=== PATIENT | female | born 1965 | race African-American/Black ===

== ENCOUNTER 2024-12-14 17:04 | Emergency (ER) | payer MEDICAID ==
[~2024-12-14] VITALS: Ht 165.1 cm; Wt 91.3 kg
[2024-12-14] MEDS: KETOROLAC TROMETH 60MG/2ML VIAL IM ONE (19:00)
[2024-12-14 19:11] LABS: Basophils # (auto) 0 10 ^3/uL (0-0.2); Basophils % (auto) 0.6 % (0.0-2.0); Eosinophils # (auto) 0.1 10 ^3/uL (0-0.8); Eosinophils % (auto) 2.5 % (0.0-7.0); Hematocrit 39.5 % (36.0-46.0); Hemoglobin 13.2 g/dL (12.2-16.2); Lymphocytes # (auto) 1.5 10 ^3/uL (0.4-5.4); Lymphocytes % (auto) 28.3 % (10.0-50.0); Mean Corpuscular Hemoglobin 29.7 pg (28.0-32.0); Mean Corpuscular Hgb Conc. 33.4 g/dL (32.0-36.0); Mean Corpuscular Volume 88.9 fL (80.0-100.0); Monocytes # (auto) 0.5 10 ^3/uL (0-1.3); Monocytes % (auto) 8.8 % (0.0-12.0); Neutrophils # (auto) 3.1 10 ^3/uL (1.6-8.6); Neutrophils % (auto) 59.8 % (37.0-80.0); Nucleated Red Blood Cells % 0.2 %; Platelet Count (auto) 172 10^3/uL (140-450); Red Blood Cells 4.44 10^6/uL (4.0-5.20); Red Cell Distribution Width 15.2 % (11.8-14.3); White Blood Cell 5.2 10^3/uL (4.4-10.8)
[2024-12-14 19:18] LABS: Sodium 140 mmol/L (136-145)
[2024-12-14 19:19] LABS: Anion Gap 5 (5-15); Calcium 9.9 mg/dL (8.7-10.4); Carbon Dioxide 26 mmol/L (20-31)
[2024-12-14 19:24] LABS: BUN/Creatinine Ratio 21.3 (10.0-20.0); Blood Urea Nitrogen 20 mg/dL (9-23)
[2024-12-14 19:26] LABS: INR 1.01 (0.9-1.15); Partial Thromboplastin Time 26.5 SEC (24.5-34.5); Prothrombin Time 10.7 sec (9.3-11.8)
[2024-12-14 19:28] LABS: Chloride 109 mmol/L (98-107); Glucose 137 mg/dL (74-106)
--- NOTE | 2024-12-14 19:28 | ED.PDOC ---
Musculoskeletal HPI Comments 59-year-old female brought in by family complaining of left calf pain for the past week. Patient states it has been difficult to ambulate due to the pain. She denies any trauma, fever, edema, skin lesions or swelling. She does know some purple bruising overlying the painful area. She states pain is localized to the upper calf region. Chief Complaint: Lower Extremity Time Seen by MD: 18:25 Reviewed Notes: Nurses Notes, Medications, Allergies Allergies: Coded Allergies: Hydromorphone (Verified Allergy, Unknown, 12/14/24) Information Source: Patient Mode of Arrival: Ambulatory Location: Left Extremity Location: Calf Timing: Days Severity: Moderate Able to Move Extremity: Yes Bear Weight: Limited Pain: Moderate Mechanism: Spontaneous Circumstances: Spontaneous Onset of Symptoms: Spontaneous Symptoms: Pain DVT Risk Factors: Cancer Last Tetanus: Unknown Associated signs and symptoms: Leg pain, Below joint pain Past Medical History PAST MEDICAL HISTORY: Arthritis (RA), Cancer (Cervical Cancer), DM Past Medical History (Other): Sarcoidosis, cervical cancer in remission, vaginal dysplasia Surgical History (Other): Partial vaginectomy COFFEE TASTER History: No Pertinent COFFEE TASTER History Family History Family History: Reviewed,noncontributory to illness, Unknown Social History Smoker: Non-Smoker Alcohol: Denies ETOH Use Drugs: Denies Drug Use Lives In: Home Hematologic/Lymphatic: denies: anemia, blood clots, easy bleeding, easy bruising, swollen glands, others All Other Systems: Reviewed and Negative (Comprehensive systems review obtained and negative except for what is stated in the HPI) Physical Exam General Appearance: No Apparent Distress HEENT: PERRL/EOMI Neck: Full Range of Motion, Normal Inspection Respiratory: Lungs Clear, No Accessory Muscle Use, No Respiratory Distress, Normal Breath Sounds Cardiovascular: No Edema, No JVD, Regular Rate/Rhythm Breast Exam: Deferred Gastrointestinal: Non Tender, Soft Genitalia: Deferred Pelvic: Deferred Rectal: Deferred Extremities: Normal range of motion, No pedal edema, Other (Localized left calf tenderness in the proximal aspect with localized bruising.) Musculoskeletal : Apperance: Normal Neurologic: Alert (Oriented x4), Normal Affect, Normal Mood Cerebellar Function: NOT DONE Reflexes: NOT DONE Skin: Dry, Warm Lymphatic: NOT DONE Was a procedure done? Was a procedure done?: No Differential Diagnosis EXT Differential Diagnosis: Cellulitis, Deep Vein Thrombosis, Strain, Arthritis, Bursitis, Other (Superficial thrombophlebitis) X-Ray, Labs, Meds, VS Vital Signs Date Time Temp Pulse Resp B/P (MAP) Pulse Ox O2 Delivery O2 Flow Rate FiO2 12/14/24 20:38 98.3 69 18 150/75 (100) 99 98.3 12/14/24 20:38 69 18 99 Room Air 12/14/24 17:10 97.8 81 18 138/63 (88) 97 Lab Test 12/14/24 18:49 Range/Units White Blood Count 5.2 4.4-10.8 10^3/uL Red Blood Count 4.44 4.0-5.20 10^6/uL Hemoglobin 13.2 12.2-16.2 g/dL Hematocrit 39.5 36.0-46.0 % Mean Corpuscular Volume 88.9 80.0-100.0 fL Mean Corpuscular Hemoglobin 29.7 28.0-32.0 pg Mean Corpuscular Hemoglobin Concent 33.4 32.0-36.0 g/dL Red Cell Distribution Width 15.2 H 11.8-14.3 % Platelet Count 172 140-450 10^3/uL Mean Platelet Volume 8.3 6.9-10.8 fL Neutrophils (%) (Auto) 59.8 37.0-80.0 % Lymphocytes (%) (Auto) 28.3 10.0-50.0 % Monocytes (%) (Auto) 8.8 0.0-12.0 % Eosinophils (%) (Auto) 2.5 0.0-7.0 % Basophils (%) (Auto) 0.6 0.0-2.0 % Neutrophils # (Auto) 3.1 1.6-8.6 10 ^3/uL Lymphocytes # (Auto) 1.5 0.4-5.4 10 ^3/uL Monocytes # (Auto) 0.5 0-1.3 10 ^3/uL Eosinophils # (Auto) 0.1 0-0.8 10 ^3/uL Basophils # (Auto) 0 0-0.2 10 ^3/uL Nucleated Red Blood Cells 0.2 % Prothrombin Time 10.7 9.3-11.8 sec Prothrombin Time INR 1.01 0.9-1.15 Activated Partial Thromboplast Time 26.5 24.5-34.5 SEC Sodium Level 140 136-145 mmol/L Potassium Level 4.0 3.5-5.1 mmol/L Chloride Level 109 H 98-107 mmol/L Carbon Dioxide Level 26 20-31 mmol/L Anion Gap 5 5-15 Blood Urea Nitrogen 20 9-23 mg/dL Creatinine 0.94 0.550-1.02 mg/dL Glomerular Filtration Rate Calc 69 >90 mL/min BUN/Creatinine Ratio 21.3 H 10.0-20.0 Serum Glucose 137 H 74-106 mg/dL Calcium Level 9.9 8.7-10.4 mg/dL Current Medications Medications (Trade) Dose Ordered Sig/Mandi Route Start Time Stop Time Status Last Admin Ketorolac Tromethamine (Toradol Injection) 60 mg ONCE ONCE IM 12/14/24 18:15 12/14/24 18:16 DC 12/14/24 19:00 PROCEDURE(s): LLDVT - LT Lower DVT REASON: L calf pain ORDER NUMBER(s): [id number], ACCESSION NUMBER(s): [id number] Left lower extremity venous duplex Clinical History: L calf pain Comparison: None Technique: Duplex Doppler evaluation of the deep venous system of the left lower extremity from the common femoral vein to the popliteal vein including color Doppler and spectral/pulsed waveform analysis was performed. Findings: The common femoral vein demonstrates appropriate compressibility and waveform variability. There is compressibility/patency of the great saphenous vein at the proximal thigh. The femoral vein demonstrates appropriate compressibility and waveform variability. The deep femoral vein demonstrates appropriate compressibility and waveform variability. The popliteal vein demonstrates appropriate compressibility and waveform variability. There is normal compressibility at the tibioperoneal trunk. Impression: No evidence of left femoropopliteal venous thrombosis. X-Ray, Labs, Meds, VS Comment 59-year-old female with a history of diabetes, RA, sarcoidosis, cervical cancer in remission, brought in by family complaining of left calf pain for the past week. Vitals unremarkable Exam remarkable for localized soft tissue tenderness in the proximal calf area with purple bruising/discoloration Rhythm strip independently interpreted by me: Sinus rhythm, rate 81, no ectopy. Left lower extremity ultrasound: Impression: No evidence of left femoropopliteal venous thrombosis. CBC, basic metabolic panel and coagulation panel unremarkable for any abnormality of acute significance. Patient treated with the following in the ER: Toradol 60 mg IM On re-evaluation, patient states pain has improved. Vitals were stable. Patient is able to ambulate. Patient appears stable for discharge with close outpatient follow-up with her primary physician. Rx Tylenol, ibuprofen Time of 1ST Reevaluation: 18:55 Reevaluation 1ST: Unchanged Time of 2ND Reevaluation: 21:55 Reevaluation 2ND: Improved Patient Education/Counseling: Diagnosis, Treatment, Prognosis Family Education/Counseling: No Family Present Departure 1 Departure Time of Disposition: 21:55 Impression: Primary Impression: Superficial thrombophlebitis Qualified Codes: I80.02 - Phlebitis and thrombophlebitis of superficial vessels of left lower extremity Disposition: HOME / SELF CARE / HOMELESS Condition: Stable Additional Instructions: Blood tests were unremarkable. Your ultrasound did not show any evidence of a d eep venous thrombosis (deep vein blood clot). I have prescribed pain medication to take at home. Follow-up with your primary doctor in 1-2 days. e-Prescriptions Ibuprofen Micronized (Ibuprofen) 800 Mg Tab 800 MG PO Q8HP PRN, #30 TAB prn pain, take with food Prov: LESLY LIVINGSTON MD 12/14/24 Acetaminophen (Tylenol Extra Strength) 500 Mg Tab 1000 MG PO Q6HP PRN, #30 TAB prn pain Prov: LESLY LIVINGSTON MD 12/14/24 Discharged With: Relative Critical Care Note Critical Care Time?: No Stability Stability form required: No Heart Score Heart Score: Heart Score Response (Comments) Value History N/A 0 EKG N/A 0 Age N/A 0 Risk Factors N/A 0 Troponin N/A 0 Total 0 I personally scribed for LESLY LIVINGSTON MD ([email or web address]) on 12/14/24 at 19:28. Electronically submitted by Kei Pham ([email or web address]). LESLY LIVINGSTON MD Dec 14, 2024 19:28
--- NOTE | 2024-12-14 21:06 | DVH ---
Left lower extremity venous duplex Clinical History: L calf pain Comparison: None Technique: Duplex Doppler evaluation of the deep venous system of the left lower extremity from the common femor al vein to the popliteal vein including color Doppler and spectral/pulsed waveform analysis was perfo rmed. Findings: The common femoral vein demonstrates appropriate compressibility and waveform variability. There is compressibility/patency of the great saphenous vein at the proximal thigh. The femoral vein demonstrates appropriate compressibility and waveform variability. The deep femoral vein demonstrates appropriate compressibility and waveform variability. The popliteal vein demonstrates appropriate compressibility and waveform variability. There is normal compressibility at the tibioperoneal trunk. Impression: No evidence of left femoropopliteal venous thrombosis.
[2024-12-14] MEDS ORDERED: IBUP-1455 PO (21:57)
[2024-12-14] MEDS ORDERED: ACET-1304 PO (21:57)
[2024-12-14 22:47] VITALS: BP 143/67; PULSE 72; RESP 16; TEMP 98.9; O2SAT 99
== END 2024-12-14 22:55 | disposition home or self-care (01) ==
LOC: ER 17:13
DX: I80.02 Phlebitis and thrombophlebitis of superficial vessels of left lower extremity (principal); E11.9 Type 2 diabetes mellitus without complications; Z88.6 Allergy status to analgesic agent; Z98.890 Other specified postprocedural states
CPT/HCPCS: 36415; 80048; 85025; 85610; 85730; 93971; 96372; 99285; J1885

== ENCOUNTER 2024-12-18 01:21 | Emergency (ER) | payer MEDICAID ==
[~2024-12-18] VITALS: Ht 165.1 cm; Wt 93.1 kg
[~2024-12-18 01:21] MED LIST: ACET-1304 PO; IBUP-1455 PO
[2024-12-18] MEDS ORDERED: [UNRECOGNIZED DRUG - CODE] EX (02:12)
--- NOTE | 2024-12-18 02:13 | ED.PDOC ---
Musculoskeletal HPI Comments 59-year-old female who presents to the emergency department with left inner thigh pain. Patient was seen in the emergency department on December 14 for left calf pain. At that time DVT of left lower extremity was ruled out with ultrasound. Patient reports she developed to the left inner thigh pain today without any known trigger, she describes it as an electrical shocking like sensation. She does report she has a history of sciatica and has chronic bilateral lower extremity leg pain. No injury, no skin changes, no numbness or tingling. There is no sign of infection, abscess, ischemia on exam. Chief Complaint: Lower Extremity Time Seen by MD: 01:47 Reviewed Notes: Nurses Notes, Medications, Allergies Allergies: Coded Allergies: Hydromorphone (Verified Allergy, Unknown, 12/14/24) Home Meds Active Scripts Capsaicin (Capsaicin Pain Relief) 0.1 % Cre, 0.1 % EX TIDPRN PRN for 3 Days, #10 CRE Prov:MAKEDA SAAVEDRA MD 12/18/24 Ibuprofen Micronized (Ibuprofen) 800 Mg Tab, 800 MG PO Q8HP PRN, #30 TAB prn pain, take with food Prov:LESLY LIVINGSTON MD 12/14/24 Acetaminophen (Tylenol Extra Strength) 500 Mg Tab, 1000 MG PO Q6HP PRN, #30 TAB prn pain Prov:LESLY LIVINGSTON MD 12/14/24 Information Source: Patient, [facility] Medical Record Mode of Arrival: Wheelchair Review of Systems: REVIEW OF SYSTEMS: No fever, no chills, or fatigue HEENT: No sore throat, no earache, no congestion, no neck pain. Cardiac: No chest pain. No palpitations. Lungs: No shortness of breath, no cough. GI: No nausea, no vomiting, no diarrhea, no constipation, no abdominal pain : No dysuria, frequency, or urgency. No hematuria. Musculoskeletal: inner left thigh pain, no joint swelling, no extremity edema. Skin: No rash, no itching. Neuro: No headache, no dizziness, no weakness Vital Signs Vital Signs Date Time Temp Pulse Resp B/P (MAP) Pulse Ox O2 Delivery O2 Flow Rate FiO2 12/18/24 02:28 98.6 89 17 136/70 (92) 100 98.6 12/18/24 02:24 Room Air* 0 21 Physical Exam General: Awake, alert and oriented. No acute distress. Skin: Skin in warm, dry and intact. Appropriate color for ethnicity. HEENT: The head is normocephalic and atraumatic. Conjunctivae are clear without exudates or hemorrhage. Sclera is non-icteric. EOM are intact. No signs of nystagmus. Eyelids are normal in appearance without swelling or lesions. Neck: The neck is supple with normal range of motion. No JVD. Cardiac: Heart rate and rhythm are normal. No murmurs, gallops, or rubs are auscultated. Respiratory: No signs of respiratory distress. Lung sounds are clear in all lobes bilaterally without rales, ronchi, or wheezes. Abdominal: Abdomen is soft, non-tender without distention. Bowel sounds are present and normoactive in all four quadrants. Extremities: Upper and lower extremities are atraumatic in appearance without deformity or edema. Left lower extremity: Tenderness of the left upper inner thigh to light palpation. No underlying fluctuance, skin changes, injury. Normal range of motion lower extremity. Neurological: The patient is awake, alert and oriented to person, place, and time with normal speech. Speech is clear. There is no facial asymmetry. Psychiatric: Appropriate mood and affect. Good judgement and insight. Past Medical History PAST MEDICAL HISTORY: Arthritis (RA), Cancer (Cervical, in remission), DM (w/ neuropathy ), HTN Past Medical History (Other): Sarcoidosis, vaginal dysplasia, LLE DVT, migranes Surgical History: Hysterectomy Surgical History (Other): Partial vaginectomy, right knee SHOOK SPLICER History: No Pertinent SHOOK SPLICER History Family History Family History: Reviewed,noncontributory to illness, Unknown Social History Smoker: Non-Smoker Alcohol: Denies ETOH Use Drugs: Denies Drug Use Lives In: Home Was a procedure done? Was a procedure done?: No Differential Diagnosis EXT Differential Diagnosis: Cellulitis, Deep Vein Thrombosis, Compartment Syndrome, Sprain, Laceration, DJD, Strain, Rheumatoid, Arthritis, Other (Abscess) X-Ray, Labs, Meds, VS Vital Signs Date Time Temp Pulse Resp B/P (MAP) Pulse Ox O2 Delivery O2 Flow Rate FiO2 12/18/24 02:28 98.6 89 17 136/70 (92) 100 98.6 12/18/24 02:24 88 18 97 Room Air* 0 21 12/18/24 01:40 98.9 71 18 135/68 (90) 98 Lab Test 12/18/24 02:04 Range/Units Urine Color Dark-yellow Yellow Urine Clarity Clear Clear Urine pH 6.0 5.0-9.0 Urine Specific [place] 1.021 1.001-1.035 Urine Protein Negative Negative Urine Ketones Negative Negative Urine Blood 1+ H Negative /uL Urine Nitrite Negative Negative Urine Bilirubin Negative Negative Urine Urobilinogen Normal Negative mg/dL Urine Leukocyte Esterase Negative Negative /uL Urine RBC 2 0 - 4 /hpf Urine Microscopic WBC < 1 0-5 /HPF Urine Squamous Epithelial Cells Few <5 /hpf Urine Bacteria None seen None Seen /hpf Urine Mucus Few None Seen Urine Glucose 1+ H Normal mg/dL Time of 1ST Reevaluation: 01:47 Reevaluation 1ST: Unchanged Patient Education/Counseling: Treatment, Need For Follow Up Family Education/Counseling: No Family Present Departure 1 Departure Time of Disposition: 02:06 Impression: Primary Impression: Leg pain Disposition: 01 HOME / SELF CARE / HOMELESS Condition: Stable Additional Instructions: ED DISCHARGE INSTRUCTIONS Instructions: Please read all instructions provided in this packet carefully. Take gabapentin 3 times daily as previously prescribed. Try the capsaicin cream on the area of your pain. If the pain does not improve or if you develop skin irritation stop using the cream. Be sure to wash hands thoroughly after applying the cream. Do not allow the cream to get into your eyes or mouth or vaginal area. Although you have been discharged from the Emergency Department, this does not mean that you have a "clean bill of health". No definitive diagnosis for your symptoms has been made today. It is possible that you are in the process of developing a serious illness. This is why you must return to the ED without fail if any new or worsening symptoms (especially if your symptoms include chest pain, trouble breathing, abdominal pain, fever, headache, confusion, trouble seeing, or trouble walking) It is also very important that you see a primary care doctor within the next 3-5 days to follow up. If you are unable to get an appointment, return to the ED for re-evaluation. e-Prescriptions Capsaicin (Capsaicin Pain Relief) 0.1 % Cre 0.1 % EX TIDPRN PRN for 3 Days, #10 CRE Prov: MAKEDA SAAVEDRA MD 12/18/24 Comments 59-year-old female who presents to the emergency department with left inner thigh pain. Suspect radiculopathy or neuropathy secondary to diabetes. Patient was seen in the emergency department on December 14 for left calf pain. Lab studies and DVT study at that time were unremarkable other than hyperglycemia. Patient reports she developed to the left inner thigh pain today without any known trigger. There is no sign of infection, abscess, ischemia on exam. Patient felt stable for discharge home to follow up with the primary care provider. Extensive evaluation was performed in attempt to identify or rule out: (See differential diagnosis section) The following tests were ordered, and results were reviewed by me: (See diagnostic results section) The following test were independently interpreted by me: N/A I reviewed and agreed with the following test results read by other providers: N/A I reviewed the following notes from the pt's past medical encounters: December/2024 encounter for lower extremity Additional information was gathered from interviewing the following independent historians: N/A Discussion of management or test interpretation with external physician/other qualified health patient care specialist: N/A Decision regarding hospitalization or escalation of hospital level of care: Risks and benefits of admission for further treatment of patient's condition was considered however due to patient's stable condition patient will be discharged to follow up closely or return to care for worsening of condition or inability to follow up. Critical Care Note Critical Care Time?: No Stability Stability form required: No Heart Score Heart Score: Heart Score Response (Comments) Value History N/A 0 EKG N/A 0 Age N/A 0 Risk Factors N/A 0 Troponin N/A 0 Total 0 I personally scribed for MAKEDA SAAVEDRA MD ([email or web address]) on 12/18/24 at 02:33. Electronically submitted by Obey Ross ([email or web address]). MAKEDA SAAVEDRA MD Dec 18, 2024 02:13
[2024-12-18 02:21] LABS: Urine Bacteria None Seen /hpf (None Seen)
[2024-12-18 02:24] VITALS: PULSE 88; RESP 18; O2SAT 97
[2024-12-18 02:28] VITALS: BP 136/70; PULSE 89; RESP 17; TEMP 98.6; O2SAT 100
[2024-12-18 02:38] LABS: Urine Blood 1+ /uL (Negative); Urine Clarity Clear (Clear); Urine Color Dark-Yellow (Yellow); Urine Mucus FEW (None Seen); Urine Protein, UAD Negative (Negative); Urine Specific Gravity 1.021 (1.001-1.035); Urine Squamous Epithelial Cell FEW /hpf (<5); Urine Urobilinogen Normal (Negative); Urine WBC < 1 /HPF (0-5)
== END 2024-12-18 02:36 | disposition home or self-care (01) ==
LOC: ER 01:21
DX: M79.652 Pain in left thigh (principal); I10 Essential (primary) hypertension; E11.9 Type 2 diabetes mellitus without complications; Z90.710 Acquired absence of both cervix and uterus; Z79.899 Other long term (current) drug therapy; Z86.718 Personal history of other venous thrombosis and embolism; Z88.5 Allergy status to narcotic agent
CPT/HCPCS: 81001

== ENCOUNTER 2025-03-20 11:14 | Outpatient (CLI) | payer MEDICAID ==
[~2025-03-20 11:14] MED LIST changes: +[UNRECOGNIZED DRUG - CODE] EX
[2025-03-20] MEDS ORDERED: methylPREDNISolone ACETATE 80 MG/ML VL ONE (11:31)
[2025-03-20] MEDS ORDERED: LIDOCAINE 2%HCL (LOCAL ANESTH.) INJ 10ml MDV ONE (11:31)
[2025-03-20] MEDS ORDERED: BUPIVACAINE HCL 0.25% P/F 10 ML VIAL ONE (11:31)
[2025-03-20] MEDS ORDERED: IOHEXOL 300 MG/ML 100ML BOTTLE IJ ONE (11:31)
--- NOTE | 2025-03-20 12:41 | DVH ---
XY FLUOROGUIDANCE FOR NEEDLE PLAC HISTORY: TROCHANTERIC BURSITIS LEFT HIP COMPARISON: None PROCEDURE: The risks and benefits of the procedure including infection, hemorrhage and technical failure were di scussed with the patient, who agreed to proceed. The patient was positioned supine on the fluoroscopy table. Time out was performed. The left hip was localized using fluoroscopy, and the location on the skin for needle insertion was marked. The region was prepped and draped using routine sterile technique. Approximately 2 cc of lidocaine was injected for local anesthesia. A 21 gauge spinal needle was inserted, and intra-articular location was confir med by injection of less than 1 cc of iodinated contrast. 1 cc of methylprednisolone (80 mg/cc) and 4 cc of Bupivacaine (0.25%) and 5 cc of 2% Lidocaine was then injected without complication. Fluorosco py time was 0.2 minutes. DAP 8.68. The patient was informed of the temporary precautions to take following the procedure as well as of t he potential signs and symptoms which may indicate the need to contact physician, and expressed unde rstanding of this discussion. IMPRESSION: Successful steroid and anesthetic injection of the left hip.
== END 2025-03-20 17:00 | disposition home or self-care (01) ==
LOC: XY 11:14
PROVIDERS: ATTEND Orthopaedic Surgery Adult Reconstructive Orthopaedic Surgery
DX: M70.62 Trochanteric bursitis, left hip (principal); Z79.899 Other long term (current) drug therapy; Z86.718 Personal history of other venous thrombosis and embolism
CPT/HCPCS: 20610; 77002; J1010; J2003; J3490; Q9967; 73501

== ENCOUNTER 2025-08-15 13:00 | Outpatient (CLI) | payer MEDICAID ==
[2025-08-15] MEDS ORDERED: methylPREDNISolone ACETATE 80 MG/ML VL ONE (13:14)
[2025-08-15] MEDS ORDERED: BUPIVACAINE HCL 0.25% P/F 10 ML VIAL ONE (13:14)
[2025-08-15] MEDS ORDERED: IOHEXOL 300 MG/ML 100ML BOTTLE IJ ONE (13:15)
[2025-08-15] MEDS ORDERED: LIDOCAINE 2%HCL (LOCAL ANESTH.) INJ 10ml MDV ONE (13:15)
--- NOTE | 2025-08-15 15:11 | DVH ---
CLINICAL INDICATION: UNILATERAL PRIMARY OA, LT HIP TECHNIQUE: 1 radiographic views of the left hip were obtained. Comparison: XY L HIP 1V XRAY on DOS: 03/20/25 FINDINGS/IMPRESSION: Left femur is in the acetabulum with normal bony alignment. No fracture or dislocation.
--- NOTE | 2025-08-15 15:16 | DVH ---
[facility] [address] [facility] [address] Ph: [phone] DIAGNOSTIC IMAGING Diagnostic Imaging Report : [id number] Signed PATIENT: ISELA WONG ACCT: [id number] UNIT: [id number] : 1965 LOC: XYW ROOM / BED: / AGE / SEX: 60 / F ADM STATUS: REG CLI SERVICE 1307 ORDERING PHYSICIAN: HAMIDA OLSON PROCEDURE(s): FLUGU - FLUOROGUIDANCE FOR NEEDLE PLAC REASON: UNILATERAL PRIMARY OA, LT HIP ORDER NUMBER(s): [id number], ACCESSION NUMBER(s): [id number] XY FLUOROGUIDANCE FOR NEEDLE PLAC HISTORY: UNILATERAL PRIMARY OA, LT HIP COMPARISON: XY FLUOROGUIDANCE FOR NEEDLE PLAC on DOS: 03/20/25 PROCEDURE: The risks and benefits of the procedure including infection, hemorrhage and technical failure were discussed with the patient, who agreed to proceed. The patient was positioned supine on the fluoroscopy table. Time out was performed. The left hip was localized using fluoroscopy, and the location on the skin for needle insertion was marked. The region was prepped and draped using routine sterile technique. Approximately 2 cc of lidocaine was injected for local anesthesia. A 22 gauge spinal needle was inserted, and intra- articular location was confirmed by injection of less than 1 cc of iodinated contrast. 1 cc of methylprednisolone (80 mg/cc) and 4 cc of Bupivacaine (0.25%) and 5 cc of 2% Lidocaine was then injected without complication. Fluoroscopy time was 0.2 minutes. The patient was informed of the temporary precautions to take following the procedure as well as of the potential signs and symptoms which may indicate the need to contact physician, and expressed understanding of this discussion. IMPRESSION: Successful steroid and anesthetic injection of the left hip. ATED BY: CARLENE CAMPOS MD DICTATED DATE/TIME: 08/15/251513 SIGNED BY: CARLENE CAMPOS MD SIGNED DATE/TIME: 08/15/251513 CC:
--- NOTE | 2025-08-15 16:41 | DVH ---
[place] [address] Ph: [phone] DIAGNOSTIC IMAGING Diagnostic Imaging Report : [id number] Signed PATIENT: ISELA WONG ACCT: [id number] UNIT: [id number] : 1965 LOC: XYW ROOM / BED: / AGE / SEX: 60 / F ADM STATUS: REG CLI SERVICE 1307 ORDERING PHYSICIAN: HAMIDA OLSON PROCEDURE(s): FLUGU - FLUOROGUIDANCE FOR NEEDLE PLAC REASON: UNILATERAL PRIMARY OA, LT HIP ORDER NUMBER(s): [id number], ACCESSION NUMBER(s): [id number] [place] [address] Ph: [phone] DIAGNOSTIC IMAGING Diagnostic Imaging Report : [id number] Signed PATIENT: ISELA WONG ACCT: [id number] UNIT: [id number] : 1965 LOC: W ROOM / BED: / AGE / SEX: 60 / F ADM STATUS: REG CLI SERVICE 1307 ORDERING PHYSICIAN: HAMIDA OLSON PROCEDURE(s): FLUGU - FLUOROGUIDANCE FOR NEEDLE PLAC REASON: UNILATERAL PRIMARY OA, LT HIP ORDER NUMBER(s): [id number], ACCESSION NUMBER(s): [id number] XY FLUOROGUIDANCE FOR NEEDLE PLAC HISTORY: UNILATERAL PRIMARY OA, LT HIP COMPARISON: XY FLUOROGUIDANCE FOR NEEDLE PLAC on DOS: 03/20/25 PROCEDURE: The risks and benefits of the procedure including infection, hemorrhage and technical failure were discussed with the patient, who agreed to proceed. The patient was positioned supine on the fluoroscopy table. Time out was performed. The left hip was localized using fluoroscopy, and the location on the skin for needle insertion was marked. The region was prepped and draped using routine sterile technique. Approximately 2 cc of lidocaine was injected for local anesthesia. A 22 gauge spinal needle was inserted, and intra- articular location was confirmed by injection of less than 1 cc of iodinated contrast. 1 cc of methylprednisolone (80 mg/cc) and 4 cc of Bupivacaine (0.25%) and 5 cc of 2% Lidocaine was then injected without complication. Fluoroscopy time was 0.2 minutes. The patient was informed of the temporary precautions to take following the procedure as well as of the potential signs and symptoms which may indicate the need to contact physician, and expressed understanding of this discussion. IMPRESSION: Successful steroid and anesthetic injection of the left hip. ATED BY: CARLENE CAMPOS MD DICTATED DATE/TIME: 08/15/251513 SIGNED BY: CARLENE CAMPOS MD SIGNED DATE/TIME: 08/15/251513
== END 2025-08-15 17:00 | disposition home or self-care (01) ==
LOC: XYW 13:00
PROVIDERS: ATTEND Physician Assistant Medical
DX: M16.12 Unilateral primary osteoarthritis, left hip (principal); Z79.899 Other long term (current) drug therapy; Z86.718 Personal history of other venous thrombosis and embolism; Z88.5 Allergy status to narcotic agent
CPT/HCPCS: 20610; 73501; 77002; J1010; J2003; J3490; Q9967

== ENCOUNTER 2025-08-26 12:20 | Day surgery (SDC) | payer MEDICAID ==
[2025-08-23 13:41] LABS: Hematocrit 41.6 % (36.0-46.0); Hemoglobin 13.7 g/dL (12.2-16.2); Mean Corpuscular Hemoglobin 28.7 pg (28.0-32.0); Mean Corpuscular Volume 87.5 fL (80.0-100.0); Nucleated Red Blood Cells % 0.1 %
[2025-08-23 13:47] LABS: INR 0.94 (0.9-1.15); Partial Thromboplastin Time 26.2 SEC (24.5-34.5); Prothrombin Time 10.0 sec (9.3-11.8)
[2025-08-23 13:51] LABS: Urine Protein, UAD TRACE (Negative)
[2025-08-23 13:54] LABS: Alanine Aminotransferase 18 U/L (7-40); Albumin 4.3 g/dL (3.2-4.8); Alkaline Phosphatase 114 U/L (46-116); Anion Gap 7 (5-15); BUN/Creatinine Ratio 13.8 (10.0-20.0); Blood Urea Nitrogen 11 mg/dL (9-23); Calcium 9.3 mg/dL (8.7-10.4); Carbon Dioxide 29 mmol/L (20-31); Chloride 107 mmol/L (98-107); Potassium 4.2 mmol/L (3.5-5.1); Sodium 143 mmol/L (136-145); Total Protein 7.3 g/dL (5.7-8.2)
[2025-08-23 13:55] LABS: Bilirubin, Total 0.5 mg/dL (0.2-1.0); Glucose 112 mg/dL (74-106)
[~2025-08-26] VITALS: Ht 165.1 cm; Wt 95.7 kg
[~2025-08-26 12:20] MED LIST changes: +BENZ100C97 PO; +BUTA-281 OR; +CETI-176 PO; +CETI10TA2 PO; +DULO20CA PO; +ESTR0.1C VA; +FAMC125T2 PO; +INFL100I IV; +INSU100I52 IJ; +KETO0.0233; +OXYB10GE TOP; +POLYSOL7 EACHEYE; +PREG50CA PO; -[UNRECOGNIZED DRUG - CODE] EX; +[UNRECOGNIZED DRUG - CODE] OP
[2025-08-26] MEDS ORDERED: MIDAZOLAM HCL 2MG/2ML 2ml VIAL (1mg/ml) ONE (14:10)
[2025-08-26] MEDS ORDERED: fentaNYL CITRATE 100 MCG/2 ML VL ONE (14:10)
[2025-08-26] MEDS: ceFAZolin 2 GM/D5W50ml 50 ML IV ONE (14:27)
--- NOTE | 2025-08-26 14:31 | DVHOP2 ---
Operative Report - 2 Report Details Date: 08/26/25 Preop Diagnosis: 1. Left ankle synovitis 2. Left ankle osteochondral defect 3. Left ankle pain Postop Diagnosis: Same as preop Surgeon: Maria Del Carmen Pedraza MD Anesthesiologist: See anesthesia Anesthesia: General Consent: The patient was informed of the risks and benefits of the procedure. These include but are not limited to complications of anesthesia, postoperative infection, incomplete relief of symptoms, recurrence of symptoms, damage to blood vessels, nerves and tendons, deep venous thrombosis, pulmonary embolism a nd possible need for repeat surgery in the future. Complications: None Estimated Blood Loss: Minimal Fluids: See anesthesia Findings: 15 x 10 mm osteochondral defect Indications for Surgery: Worsening left ankle pain Name of Procedure Performed 1. Left ankle scope with debridement (92573) 2. Left ankle microfracture (76234) Procedure Details Procedure Details: PRE-PROCEDURE INFORMATION: In the pre-op holding area, the extremity to be operated on was clearly marked and the patient verified correct laterality of the marking. The patient was transferred to the OR table and placed in a supine position. A timeout was performed in which identification of the correct patient, procedure, location, and materials was done. The left foot and leg were prepped and draped in normal sterile fashion. The foot and leg were exsanguinated and the thigh tourniquet was inflated to 250 mmHg. DESCRIPTION OF PROCEDURE: Attention was directed to the left anterior ankle where stab incisions were made at the medial and lateral ankle gutters. These incisions were deepened through blunt dissection to the level of the capsule, and utilizing the ankle arthroscopy set, the arthroscopy camera and the debrider were placed into the ankle joint and an extensive exam of the ankle joint was performed of the medial and lateral ankle gutters, the posterior talus and tibia as well as the anterior talus and tibia. These areas were visually inspected using the camera. It was noted that there was significant ankle synovitis, including hemorrhagic synovitis throughout the ankle specifically the medial and lateral gutters. There appeared to be no osteochondral defects or lesion. Utilizing arthroscopy debrider and utilizing the total arthroscopy set, there was extensive debridement of the aforementioned ankle synovitis. Using a microfracture set, the microfracture was performed on the 15 x 10 cm ost eochondral defect. It was noted prior to performing the arthroscopy that the patient's ankle was maximally dorsiflexed and plantar flexed passively that there was significant audible and palpable clicking within the joint. After this extensive debridement was performed, there was no longer any palpable or audible clicking of this joint. After the ankle scope was performed, the incisions were closed with nylon suture. All surgical wounds were irrigated copiously with saline and closed in layers with the aforementioned suture material. A dry sterile dressing was placed on the surgical extremity. The patient was placed in a cam boot POSTOPERATIVE INFORMATION: The patient tolerated the above noted procedure and anesthesia well and was transferred to the PACU with vital signs stable, and vascular status intact with capillary refill intact to all digits. Postoperative instructions reviewed in detail with the patient with written instructions provided. Patient will return to clinic in approximately 10-14 days for first postoperative visit. Patient has the number of the clinic and was instructed to call prior to that time should any problems, questions, or concerns arise. Condition Good Disposition Home Visit Coding Podiatry Date of Service if different f: Aug 26, 2025 Billing Provider: MARIA DEL CARMEN PEDRAZA DPM Podiatry Common Visit Codes: PROCEDURE ONLY MARIA DEL CARMEN PEDRAZA DPM Aug 26, 2025 14:31
[2025-08-26] MEDS: LIDOCAINE 1% HCL (LOCAL ANESTH.) INJ 20ML MDV ONE (14:41)
[2025-08-26] MEDS ORDERED: MIDAZOLAM HCL 2MG/2ML 2ml VIAL (1mg/ml) IV PRN (15:00)
[2025-08-26] MEDS ORDERED: hydrALAZINE HCL 20 MG/ML VL IV PRN (15:00)
[2025-08-26] MEDS ORDERED: ONDANSETRON HCL 4 MG/2 ML VIAL IV PRN (15:00)
[2025-08-26] MEDS ORDERED: ACCU-CHEK COMFORT CURVE STRIP VI ONE (15:00)
[2025-08-26] MEDS ORDERED: MORPHINE SULFATE 4 MG/ML SYR/VIAL IV PRN (15:00)
[2025-08-26 15:25] VITALS: PULSE 86; RESP 15; TEMP 97.1; O2SAT 100
[2025-08-26 16:55] VITALS: BP 152/88; PULSE 81; RESP 18; O2SAT 95
== END 2025-08-26 17:00 | disposition home or self-care (01) ==
LOC: SUR 12:20
PROVIDERS: ATTEND Podiatrist
DX: M65.872 Other synovitis and tenosynovitis, left ankle and foot (principal); M93.272 Osteochondritis dissecans, left ankle and joints of left foot; M25.372 Other instability, left ankle; M17.0 Bilateral primary osteoarthritis of knee; M65.4 Radial styloid tenosynovitis [de Quervain]; G56.03 Carpal tunnel syndrome, bilateral upper limbs; Z79.82 Long term (current) use of aspirin; Z79.899 Other long term (current) drug therapy; Z90.710 Acquired absence of both cervix and uterus; Z98.890 Other specified postprocedural states; Z88.8 Allergy status to other drugs, medicaments and biological substances
CPT/HCPCS: 29891; 29898; 36415; 80053; 81001; 82962; 85025; 85610; 85730; J0360; J0690; J1100; J2003; J2250; J2405; J3010